=== PATIENT | male | born 1965 | race Two or more races ===

== ENCOUNTER → 2023-04-18 | Outpatient (CLI) | payer BC ==
[~2023-04-18] VITALS: Ht 170.2 cm; Wt 68.0 kg
[~2023-04-18] MED LIST: ADENOSINE 57 MG in GIVE UN-DILUTED 0 ML IV ONE
== END | disposition home or self-care (01) ==
LOC: XYW 08:54
PROVIDERS: ATTEND Specialist
DX: I25.9 Chronic ischemic heart disease, unspecified (principal); I10 Essential (primary) hypertension; R07.89 Other chest pain; E78.5 Hyperlipidemia, unspecified
CPT/HCPCS: 78452; 93017; A9500; J0153